=== PATIENT | male | born 1960 | race Caucasian/White ===

== ENCOUNTER 2019-10-08 13:47 | Outpatient (CLI) | payer BC, SELFPAY ==
--- NOTE | 2019-10-08 14:00 | XR_ITS ---
WS: [id number] CHEST 2 VIEWS HISTORY: HISTORY OF TOBACCO USE, ASTHMA COMPARISON: 06/18/2017 Lungs: 7 mm nodule over the RIGHT lower lobe is stable since 2017. Otherwise lungs are clear. No pleu ral effusion or pneumothorax. Cardiac size: Normal. Mediastinum/Aorta: Normal mediastinum. Bones: Normal. XR/XR chest 2V* [id number] IMPRESSION: Stable chest with no acute cardiopulmonary disease.
== END 2019-10-08 13:48 | disposition home or self-care (01) ==
LOC: RADWPI 13:54
PROVIDERS: Family Provider Family Medicine; PCP Nurse Practitioner Family; Visit Provider Nurse Practitioner Family
DX: J45.909 Unspecified asthma, uncomplicated (principal); J06.9 Acute upper respiratory infection, unspecified; Z87.891 Personal history of nicotine dependence
CPT/HCPCS: 71046

== ENCOUNTER 2019-10-12 08:52 | Outpatient (CLI) | payer BC, SELFPAY ==
--- NOTE | 2019-10-12 09:11 | FL_ITS ---
WS: [id number] ESOPHAGRAM TECHNIQUE: Double contrast examination was performed with thin and thick barium. Upright and SPICER imag es were obtained. CLINICAL INFORMATION: REFLUX COMPARISON: None. FINDINGS: Swallowing: Normal. No evidence of aspiration or penetration. Incidental tiny lateral pharyngeal pouc h. Esophagus: Normal morphology and motility. No stricture or mass. Postoperative changes fundoplication which appears intact. Normal esophageal emptying. Gastroesophageal reflux: Tiny amount of reflux is present in the upright position. Mild to moderate r eflux in the supine position to the mid and distal esophagus. Evidence of reflux esophagitis/Feliz' s esophagus in the distal esophagus. Fluoroscopy time: 2.6 minutes. FL/FL barium swallow [id number] IMPRESSION: 1. Prior postoperative changes fundoplication which appears intact with mild n arrowing at the GE junction. Normal esophageal emptying. 2. No significant hernia recurrence.. 3. No evidence of high-grade stricture or obstructing mass. 4. Minimal reflux in the upright position. More prominent mild to moderate ref lux in the supine position to the mid esophagus. 5. Evidence of reflux esophagitis/Feliz's esophagus in the distal esophagus. Evidence of gastritis proximal stomach with thickened gastric folds
== END 2019-10-12 08:53 | disposition home or self-care (01) ==
PROVIDERS: Family Provider Nurse Practitioner Family; PCP Nurse Practitioner Family; Visit Provider Surgery
DX: K21.9 Gastro-esophageal reflux disease without esophagitis (principal); K22.70 Barrett's esophagus without dysplasia
CPT/HCPCS: 74220

== ENCOUNTER 2020-09-13 11:48 | Outpatient (CLI) | payer BC, SELFPAY ==
--- NOTE | 2020-09-13 12:13 | CT_ITS ---
WS: [id number] CT ABDOMEN WITHOUT CONTRAST HISTORY: VENTRAL HERNIA Contiguous single phase 5 mm axial imaging performed to the abdomen. Oral contrast has been provided. Coronal and sagittal reformats are submitted. All CT scans at [facility] use at least on e of these dose optimization techniques: automated exposure control; mA and/or kV adjustment per bobby ent size (includes targeted exams where dose is matched to clinical indication); or iterative reconst ruction. CONTRAST: None DLP: 682.07 mGycm COMPARISON: None available. Lower thorax: Benign calcified granuloma RIGHT middle lobe. Moderate-sized hiatal hernia. Oral contra st is still present within the hernia. Liver: Normal size liver with mild diffuse hepatic steatosis. No bile duct dilatation. Gallbladder: Normal. Pancreas: Normal. Spleen: Normal. Adrenals: Normal. Right kidney: Normal. Left kidney: Normal. Aorta: Mild atherosclerosis with no aneurysm. GI tract: As visualized within the abdomen no abnormalities. There are a few diverticula in the desce nding colon without inflammation. Mild constipation. No adenopathy or free fluid. Abdominal wall: Very small fat-containing umbilical hernia. Visualized osseous structures: Unremarkable. CT/CT abdomen wo con [id number] IMPRESSION: 1. Very small fat-containing umbilical hernia. 2. Moderate size hiatal hernia. 3. Mild hepatic steatosis. 4. Mild atherosclerosis aorta.
[2020-09-13] MEDS: iohexol 300 mg/mL 50 mL Btl PO (12:33)
== END 2020-09-13 11:49 | disposition home or self-care (01) ==
LOC: RADWPI 11:52
PROVIDERS: PCP Nurse Practitioner Family; Visit Provider Nurse Practitioner Family
DX: K43.9 Ventral hernia without obstruction or gangrene (principal); I70.0 Atherosclerosis of aorta; K76.0 Fatty (change of) liver, not elsewhere classified; K44.9 Diaphragmatic hernia without obstruction or gangrene
CPT/HCPCS: 74150; Q9967